=== PATIENT | male | born 1970 | race Asian ===

== ENCOUNTER 2017-05-18 12:58 | Emergency (ER) | payer OTHER ==
[~2017-05-18] VITALS: Ht 172.7 cm; Wt 68.2 kg
[2017-05-18 13:06] VITALS: Ht 172.7 cm; Wt 68.2 kg
[2017-05-18] MEDS ORDERED: KETOROLAC 15 MG INJ IM STA (15:15)
--- NOTE | 2017-05-18 15:15 | ERD ---
ER Documentation Chief Complaint Date/Time DATE: 05/18/17 TIME: 15:11 Chief Complaint Pt with Left knee pain x 3 days, worst today, dx of gout. HPI This 47-year-old male patient presents to emergency department with left knee pain hx of Gout . pt is out of indomethacin . pt is unable to move without pain . symptoms x 3 days . pt reports left knee pain and edema. pt has not tried any medication today for pain ROS All systems reviewed and are negative except as per history of present illness. Medications Home Meds Active Scripts Colchicine* (Colcrys*) 0.6 Mg Tablet, 0.6 MG PO DAILY, #15 TAB Prov:TIANA,JANETTE 05/18/17 Indomethacin* (Indocin*) 50 Mg Cap, 50 MG PO TID, #30 CAP Prov:TIANA,JANETTE 05/18/17 Hydrocodone/Acetaminophen (Whitharral 10-325 Tablet) 1 Each Tablet, 1 TAB PO Q6H Y for PAIN, #20 TAB Prov:TIANA,JANETTE 05/18/17 Physical Exam Vitals Vital Signs Date Time Temp Pulse Resp B/P Pulse Ox O2 Delivery O2 Flow Rate FiO2 05/18/17 19:18 98.0 75 18 107/72 98 Room Air 05/18/17 13:06 98.8 114 18 134/88 95 Physical Exam Const: Well-nourished well-hydrated well-appearing obvious discomfort no acute distress Head: Atraumatic Eyes: Normal Conjunctiva ENT: Normal External Ears, Nose and Mouth. Neck: Full range of motion..~ No meningismus. Resp: Clear to auscultation bilaterally Cardio: Regular rate and rhythm, no murmurs Abd: Soft, non tender, non distended. Normal bowel sounds Skin: No petechiae or rashes Back: No midline or flank tenderness Lower Extremity - bilateral: Skin: No laceration, Warm to touch Compartments: Soft Motor: Decreased left knee range of motion with flexion and extension, pain with weightbearing Sensation: [Intact to light touch superior inferior and lateral surfaces. Bones: Nontender pelvis/ proximal tibia/ malleoli/foot. Left knee tender to palpation with palpable Joints: Small nonfluctuating edema or laxity Pulses/Perfusion: 2+ DP, Capillary refill < 2 seconds Neur: Awake and alert Psych: Normal Mood and Affect Result Diagram: 05/18/17 1535 Results 24 hrs Laboratory Tests Test 05/18/17 15:35 White Blood Count 19.010^3/ul Red Blood Count 4.3310^6/ul Hemoglobin 14.5g/dl Hematocrit 41.8% Mean Corpuscular Volume 96.5fl Mean Corpuscular Hemoglobin 33.5pg Mean Corpuscular Hemoglobin Concent 34.7g/dl Red Cell Distribution Width 11.9% Platelet Count 34435^3/UL Mean Platelet Volume 8.4fl Neutrophils % 87.5% Lymphocytes % 5.0% Monocytes % 6.8% Eosinophils % 0.1% Basophils % 0.2% Nucleated Red Blood Cells % 0.0/100WBC Neutrophils # 16.610^3/ul Lymphocytes # 1.010^3/ul Monocytes # 1.310^3/ul Eosinophils # 0.010^3/ul Basophils # 0.010^3/ul Nucleated Red Blood Cells # 0.010^3/ul Erythrocyte Sedimentation Rate 35mm/Hr Uric Acid 6.1mg/dl Current Medications Medications (Trade) Dose Ordered Sig/Rico Route PRN Reason Start Time Stop Time Status Last Admin Dose Admin Ketorolac Tromethamine (Toradol) 15 mg ONCE STAT IM 05/18/17 15:15 05/18/17 15:19 DC 05/18/17 16:10 Acetaminophen/ Hydrocodone Bitart (Whitharral (5/325)) 1 tab ONCE ONCE PO 05/18/17 15:30 05/18/17 15:49 DC 05/18/17 16:06 Colchicine (Colchicine) 1.2 mg ONCE ONCE PO 05/18/17 15:30 05/18/17 15:49 DC 05/18/17 17:13 Colchicine (Colchicine) 0.6 mg ONCE ONCE PO 05/18/17 15:30 05/18/17 15:49 DC Procedures/MDM PROCEDURE: Left knee radiographs. CLINICAL INDICATION: Left knee pain and swelling. Septic shock. TECHNIQUE: Three views. Weight bearing. Frontal, lateral, and oblique. COMPARISON: No prior studies are available for comparison. FINDINGS: There is no fracture or dislocation. There is fluid in the knee joint. The articular surfaces are intact. Small osteophytes are noted arising from the margins of the patella. There is no lytic or blastic lesion. There is no radiopaque foreign body. IMPRESSION: 1. Fluid in the knee joint. 2. Mild degenerative change. 3. Otherwise unremarkable images of the left knee. PROCEDURE: Ultrasound of the left knee. CLINICAL INDICATION: Swelling, septic joint, gout TECHNIQUE: Sonographic evaluation of the left knee was performed with hayes scale and color imaging. Images were reviewed on a high-resolution PACS workstation. COMPARISON: None available FINDINGS: Suprapatellar joint effusion is seen, measuring 6.2 x 1 cm. The remainder of the examination is otherwise unremarkable. IMPRESSION: Small suprapatellar joint effusion. Electronically viewed and signed by Physician Tico on 05/18/2017 18: 19 Electronically viewed and signed by .Mich Loredo MD, MD on 05/18/2017 16:08 This pleasant 47-year-old male patient presents to emergency department with left knee pain, warmth, and edema. Patient reports history of gouty arthritis, Reports that he is out of his indomethacin. Patient also reports that he usually has one episode a year or he needs to go to emergency department. Last year he said he went to [facility] emergency room and had a thoracentesis, with fluid removed from his joint. Patient reports his knee is not as swollen as his last emergency room visit. Patient is knowledgeable about his condition. Denies fevers, reports difficulty ambulating secondary to pain. Today's course includes 1.2 mg colchicine followed by 0.6 mg colchicine in 1 hour after first dose. Toradol. And Whitharral. X-ray of left knee negative for fracture, dislocation positive for degenerative changes and suprapatellar joint effusion is seen, measuring 6.2 x 1 cm. . Ultrasound or knee; Radiologist's findings small suprapatellar joint effusion. Patient said rate and WBCs are elevated. This case discussed with Dr. Gonzalez. Okay to discharge patient home with colchicine 0.6 mg 1 tab p.o. daily, indomethacin 50 mg 1 tab p.o. every 8 hours as needed knee pain. Whitharral 10 1 tab p.o. every 6 hours as needed pain count of 20. Follow-up with primary care physician, return to emergency department if symptoms do not improve as anticipated. Return to emergency department for decreased range of motion in knee, fevers, nausea or vomiting. Patient is stable with no new complaints during ER course, clinically there is no current evidence to suggest Septic joints, patellar fracture or foreign body or any other emergent condition appearing to require further evaluation or hospitalization. I feel the patient is stable for discharge at this time. I have discussed results, examination findings, the treatment plan with the patient and family present prior to discharge. Indications for emergent reevaluation, side effects of medication were also discussed. All questions were answered. Patient verbalizes understanding and agrees with plan of care. Departure Diagnosis: Primary Impression: Gout attack Gout site: knee Gout etiology: unspecified cause Laterality: left Qualified Code: M10.9 - Acute gout of left knee, unspecified cause Condition: Good Patient Instructions: Eating to Prevent Gout, Gout Diet, Treating Gout Attacks Referrals: [facility] Additional Instructions: Thank you for for coming to [facility] for your care today. Please ask your nurse or provider if you have questions about your care today and do not leave until all your questions have been answered. Please use any medications given as directed and follow-up with your doctor (or the doctor you were referred to) in the next 2-3 days. If you do not have a primary care doctor you may follow up at the [facility] (listed below). You may also use motrin and tylenol as needed for fever and/or pain unless instructed otherwise by your provider or nurse. Indications for more urgent follow-up have been discussed, but you may return to the Emergency Department at ANY time for any worrisome or worsening symptoms. If you have abdominal pain, please know that no test or exam you received is perfect and you should follow up within 8 hours for continued pain. If you had any imaging studies today, such as an X-Ray or CT Scan, these studies will be reviewed later by a radiologist. You will be called if there are important findings that were not identified today, so make sure the contact information you provided at registration is correct. If you received any narcotic pain control medicine today, such as Vicodin, Morphine or Dilaudid, your coordination and judgment may be affected for a number of hours. Please do not drive or operate heavy machinery, and you may want someone to assist you at home. If you were given a prescription for narcotic medication, be aware that it is very addictive- use sparingly and only if necessary. Thank you for for coming to [facility] for your care today. Please ask your nurse or provider if you have questions about your care today and do not leave until all your questions have been answered. Please use any medications given as directed and follow-up with your doctor (or the doctor you were referred to) in the next 2-3 days. If you do not have a primary care doctor you may follow up at the [facility] (listed below). You may also use motrin and tylenol as needed for fever and/or pain unless instructed otherwise by your provider or nurse. Indications for more urgent follow-up have been discussed, but you may return to the Emergency Department at ANY time for any worrisome or worsening symptoms. If you have abdominal pain, please know that no test or exam you received is perfect and you should follow up within 8 hours for continued pain. If you had any imaging studies today, such as an X-Ray or CT Scan, these studies will be reviewed later by a radiologist. You will be called if there are important findings that were not identified today, so make sure the contact information you provided at registration is correct. If you received any narcotic pain control medicine today, such as Vicodin, Morphine or Dilaudid, your coordination and judgment may be affected for a number of hours. Please do not drive or operate heavy machinery, and you may want someone to assist you at home. If you were given a prescription for narcotic medication, be aware that it is very addictive- use sparingly and only if necessary. JANETTE MONTIEL May 18, 2017 15:15
[2017-05-18] MEDS ORDERED: HYDROCODONE/APAP (5/325) TAB PO ONE (15:30)
[2017-05-18] MEDS ORDERED: COLCHICINE 0.6 MG TAB PO ONE ×2 (15:30)
[2017-05-18 15:46] LABS: BASOPHILS % 0.2 % (0.0-2.0); EOSINOPHILS % 0.1 % (0.0-7.0); HEMATOCRIT 41.8 % (42.0-52.0); HEMOGLOBIN 14.5 g/dl (14.0-18.0); MEAN CORPUSCULAR HEMOGLOBIN 33.5 pg (29.0-33.0); MEAN CORPUSCULAR HGB CONC 34.7 g/dl (32.0-37.0); MEAN CORPUSCULAR VOLUME 96.5 fl (82.0-101.0); MEAN PLATELET VOLUME 8.4 fl (7.4-10.4); MONOCYTE # 1.3 10^3/ul (0.3-0.9); MONOCYTES % 6.8 % (0.0-11.0); NEUTROPHIL # 16.6 10^3/ul (1.6-7.5); NEUTROPHILS % 87.5 % (39.0-77.0); PLATELET COUNT 374 10^3/UL (140-415); RED BLOOD COUNT 4.33 10^6/ul (4.70-6.10); RED CELL DISTRIBUTION WIDTH 11.9 % (11.5-14.5)
--- NOTE | 2017-05-18 16:09 | RADRPT ---
PROCEDURE: Left knee radiographs. CLINICAL INDICATION: Left knee pain and swelling. Septic shock. TECHNIQUE: Three views. Weight bearing. Frontal, lateral, and oblique. COMPARISON: No prior studies are available for comparison. FINDINGS: There is no fracture or dislocation. There is fluid in the knee joint. The articular surfaces are intact. Small osteophytes are noted arising from the margins of the rodriguez la. There is no lytic or blastic lesion. There is no radiopaque foreign body. IMPRESSION: 1. Fluid in the knee joint. 2. Mild degenerative change. 3. Otherwise unremarkable images of the left knee. RPTAT: QQ .Mich Loredo MD, MD Date Time Electronically viewed and signed by .Mich Loredo MD, on 05/18/2017 16:08 .R/
--- NOTE | 2017-05-18 18:19 | RADRPT ---
PROCEDURE: Ultrasound of the left knee. CLINICAL INDICATION: Swelling, septic joint, gout TECHNIQUE: Sonographic evaluation of the left knee was performed with hayes scale and color imaging . Images were reviewed on a high-resolution PACS workstation. COMPARISON: None available FINDINGS: Suprapatellar joint effusion is seen, measuring 6.2 x 1 cm. The remainder of the examination is otherwise unremarkable. IMPRESSION: Small suprapatellar joint effusion. RPTAT: HCNS Physician Tico Date Time Electronically viewed and signed by Physician Tico on 05/18/2017 18:19 /
[2017-05-18] MEDS ORDERED: HYDR-902 PO (18:50)
[2017-05-18] MEDS ORDERED: IND50 PO (18:50)
[2017-05-18 19:18] VITALS: BP 107/72; PULSE 75; RESP 18; TEMP 98
[2017-05-18] MEDS ORDERED: COLC0.6T6 PO (19:23)
== END 2017-05-18 19:33 | disposition home or self-care (01) ==
LOC: FTE 12:58
DX: M10.9 Gout, unspecified (principal)
CPT/HCPCS: 73562; 76882; 84560; 85025; 85651; 96372; J1885; Z7502; Z7610